=== PATIENT | female | born 1950 | race Hispanic/Latino ===

== ENCOUNTER 2018-10-21 10:32 | Inpatient (IN) | payer MEDICARE ==
[2018-10-18 09:04] LABS: BASOPHILS % 0.4 % (0.0-1.0); EOSINOPHILS # (AUTO) 0.2 (0.0-0.4); EOSINOPHILS % 3.3 % (0.0-6.0); HEMATOCRIT 31.2 % (34.2-44.1); HEMOGLOBIN 10.5 g/dL (12.0-16.0); LYMPHOCYTES # (AUTO) 1.4 (1.0-3.2); LYMPHOCYTES % 18.9 % (18.0-39.1); MEAN CORPUSCULAR HEMOGLOBIN 29.5 pg (28-32); MEAN CORPUSCULAR HGB CONC 33.7 g/dL (31-35); MEAN CORPUSCULAR VOLUME 87.6 fL (81-99); MONOCYTES # (AUTO) 0.6 (0.2-0.8); MONOCYTES % 7.8 % (4.4-11.3); NEUTROPHILS # (AUTO) 5.1 (2.1-6.9); NEUTROPHILS % 69.3 % (38.7-80.0); PLATELET COUNT 241 x10e3/uL (140-360); RED BLOOD COUNT 3.56 x10e6/uL (3.6-5.1)
--- NOTE | 2018-10-18 09:24 | Diagnostic Imaging Report ---
EXAM: CHEST 2 VIEWS, PA and lateral DATE: 10/18/2018 Time stamp on exam: 8:49 AM INDICATION: Preoperative COMPARISON: None FINDINGS: LINES/TUBES: None LUNGS: No consolidations or edema. PLEURA: No effusions or pneumothorax. HEART AND MEDIASTINUM: Normal size and contour. Tortuous thoracic aorta. BONES AND SOFT TISSUES: No acute findings. IMPRESSION: No acute thoracic abnormality. Signed by: Dr. Mariano Olivas DO on 10/18/2018 9:20 AM
[2018-10-18 09:40] LABS: ALBUMIN 3.4 g/dL (3.5-5.0); ALBUMIN/GLOBULIN RATIO 0.7 (0.8-2.0); ANION GAP 13.3 mmol/L (8-16); CALCIUM 10.2 mg/dL (8.4-10.2); CREATININE, SERUM 1.21 mg/dL (0.57-1.11); POTASSIUM 4.3 mmol/L (3.5-5.1)
[2018-10-21] VITALS (22 sets, daily range): BP systolic 131–160; BP diastolic 59–80
[~2018-10-21] VITALS: Ht 154.9 cm; Wt 76.0 kg
[2018-10-21] MEDS: SOD CHL 0.45%/POT CHL 20MEQ 1,000 ML IV SCH ×2 (02:35→18:32)
[~2018-10-21 10:32] MED LIST: BASAGLAR SQ; FERROUS SULFAT325 M1 PO; GLIPIZIDE5 MG PO; LOSARTAN POTASS25 MG PO; METFORMIN HCL500 MG PO; SIMVASTATIN20 MG PO
--- OUTSIDE RECORDS SUMMARY | 2018-10-21 10:33 | XMS REPORT ---
Author Author [facility] Address Unknown Phone Unavailable Care Team Providers [place] Weighmaster Name Role Phone RENO RETANA Unavailable Unavailable Problems This patient has no known problems. Allergies, Adverse Reactions, Alerts This patient has no known allergies or adverse reactions. Medications This patient has no known medications. Results Test Description Test Time Test Comments Text Results Atomic Results Result Comments CHEST 2 VIEWS 2018-10-18 09:20:00 [place] [id number] Patient Name: BLAKE MEDELLIN MR #: [id number] : 1950 Age/Sex: 68/F Req #: [id number] [facility] Physician: Ordered by: RENO RETANA MD Report #: [id number] Location: OR Room/Bed: Procedure: [id number] DX/CHEST 2 VIEWS Exam Date: 10/18/18 Exam Time: 0855 REPORT STATUS: Signed EXAM: CHEST 2 VIEWS, PA and lateral DATE: 10/18/2018 Time stamp on exam: 8:49 AM INDICATION: Preoperative COMPARISON: None FINDINGS: LINES/TUBES: None LUNGS: No consolidations or edema. PLEURA: No effusions or pneumothorax. HEART AND MEDIASTINUM: Normal size and contour. Tortuous thoracic aorta. BONES AND SOFT TISSUES: No acute findings. IMPRESSION: No acute thoracic abnormality. Signed by: Dr. Jostin Thomas DO on 10/18/2018 9:20 AM Dictated By: JOSTIN THOMAS DO 9 Transcribed By: EUNICE on 10/18/18919 COPY TO: RENO RETANA MD
[2018-10-21] MEDS ORDERED: CEFAZOLIN SOD 1 GM/NS 50ML 50 ML IV ONE (10:48)
[2018-10-21] MEDS ORDERED: DEXTROSE 5% 250ML 250 ML IV ONE (10:55)
[2018-10-21] MEDS ORDERED: IRBESARTAN150 MG PO (11:45)
[2018-10-21] MEDS ORDERED: MANNITOL 25% 12.5GM/50ML 50 ML ONE (12:44)
[2018-10-21] MEDS ORDERED: ACETAMINOPHEN 1000 MG/100 ML IV PRN (15:45)
[2018-10-21] MEDS: SODIUM CHLORIDE 0.9% 250ML IRRIG IR SCH ×3 (15:45→23:00)
[2018-10-21] MEDS ORDERED: NALOXONE HCL INJ 0.4 MG/ML AMP IV PRN (15:45)
[2018-10-21] MEDS ORDERED: MORPHINE SULFATE 1 MG/ML 30ML PCA IV PRN (15:45)
[2018-10-21] MEDS ORDERED: DIPHENHYDRAMINE HCL INJ 50 MG/ML VIAL IM PRN (15:45)
[2018-10-21] MEDS ORDERED: HYDROMORPHONE 2MG/ML 2 MG/ML ML ONE (16:18)
[2018-10-21] MEDS ORDERED: FENTANYL CITRATE/PF 100MCG/2 ML INJ ONE ×2 (16:34→19:46)
--- NOTE | 2018-10-21 16:51 | Diagnostic Imaging Report ---
Examination: Single AP view of the chest. COMPARISON: Chest radiograph 10/18/2018 INDICATION: Evaluate for pneumothorax after nephrectomy DISCUSSION: Single AP portable chest radiograph. Exam limited by rotation. Lines/tubes: Interval placement of a nasogastric tube which courses below the diaphragm with tip out of the [id number]. Lungs: Central pulmonary vascular congestion and perihilar/bibasilar atelectasis. Pleura: There is no pleural effusion or pneumothorax. Heart and mediastinum: Cardiomediastinal silhouette is unremarkable. Pulmonary vasculature is normal. Bones and soft tissues: No acute bony abnormalities. Degenerative changes in the thoracic spine and shoulder girdles. IMPRESSION: No pneumothorax. Pulmonary vascular congestion and atelectasis. Signed by: Pancho Nj MD on 10/21/2018 4:47 PM
[2018-10-21] MEDS ORDERED: MEPERIDINE HCL INJ 25 MG/ML VIAL ONE (16:55)
[2018-10-21] MEDS ORDERED: MORPHINE SULFATE INJ 4 MG/ML INJ 1ML ONE (17:08)
[2018-10-21] MEDS ORDERED: SODIUM CHLORIDE 0.9% 1000ML 1,000 ML ONE (17:24)
[2018-10-21] MEDS ORDERED: DEXAMETHASONE SOD PHOS INJ 4 MG/ML VIAL ONE (18:11)
[2018-10-21] MEDS ORDERED: PROPOFOL IV EMULSION 10 MG/ML 20 ML VIAL ONE (18:11)
[2018-10-21] MEDS ORDERED: GLYCOPYRROLATE INJ 1MG/ 5 ML SYR ONE (18:11)
[2018-10-21] MEDS ORDERED: ONDANSETRON HCL INJ 2MG/ML 2ML 2 MG/ML VIAL ONE (18:11)
[2018-10-21] MEDS ORDERED: LIDOCAINE HCL 2% LOCAL INJ 5 ML SDV VIAL INJ ONE (18:11)
[2018-10-21] MEDS ORDERED: NEOSTIGMINE 5 MG/5ML SYR ONE (18:11)
[2018-10-21] MEDS ORDERED: ROCURONIUM BROMIDE 10 MG/ML 5ML VIAL ONE (18:11)
[2018-10-21] MEDS ORDERED: LIDOCAINE HCL 2% JELLY 5 ML TUBE ONE (18:11)
[2018-10-21] MEDS ORDERED: ACETAMINOPHEN 1000 MG/100 ML IV ONE (18:11)
[2018-10-21] MEDS ORDERED: SEVOFLURANE INHAL SOLN 250 ML PEN BTL ONE (18:11)
[2018-10-21 18:23] LABS: BASOPHILS % 0.1 % (0.0-1.0); EOSINOPHILS % 0.1 % (0.0-6.0); HEMATOCRIT 28.4 % (34.2-44.1); HEMOGLOBIN 9.4 g/dL (12.0-16.0); LYMPHOCYTES # (AUTO) 0.6 (1.0-3.2); LYMPHOCYTES % 5.9 % (18.0-39.1); MEAN CORPUSCULAR HEMOGLOBIN 29.2 pg (28-32); MEAN CORPUSCULAR HGB CONC 33.1 g/dL (31-35); MEAN CORPUSCULAR VOLUME 88.2 fL (81-99); MONOCYTES # (AUTO) 0.3 (0.2-0.8); MONOCYTES % 2.9 % (4.4-11.3); NEUTROPHILS # (AUTO) 8.5 (2.1-6.9); NEUTROPHILS % 90.7 % (38.7-80.0); PLATELET COUNT 223 x10e3/uL (140-360); RED BLOOD COUNT 3.22 x10e6/uL (3.6-5.1); RED CELL DISTRIBUTION WIDTH 14.5 % (11.7-14.4)
[2018-10-21 18:40] LABS: ANION GAP 12.5 mmol/L (8-16); BLOOD UREA NITROGEN 14 mg/dL (7-26); BUN/CREATININE RATIO 16 (6-25); CALCIUM 8.5 mg/dL (8.4-10.2); CARBON DIOXIDE 22 mmol/L (22-29); CHLORIDE 110 mmol/L (98-107); CREATININE, SERUM 0.86 mg/dL (0.57-1.11); EST GLOMERULAR FILTRATION RATE > 60 ML/MIN (60-); GLUCOSE 84 mg/dL (74-118); POTASSIUM 3.5 mmol/L (3.5-5.1); SODIUM 141 mmol/L (136-145)
[2018-10-21] MEDS ORDERED: MIDAZOLAM HCL 2 MG/2 ML VIAL ONE (19:46)
[2018-10-21] MEDS ORDERED: MORPHINE SULFATE INJ 10 MG/ML ONE (19:46)
[2018-10-21] MEDS: CEFAZOLIN SOD 1 GM/NS 50ML 50 ML IV SCH (21:33)
[2018-10-22] VITALS (45 sets, daily range): BP systolic 93–163; BP diastolic 43–109
[2018-10-22] MEDS: SODIUM CHLORIDE 0.9% 250ML IRRIG IR SCH ×2 (03:50→08:29)
[2018-10-22] MEDS ORDERED: DEXTROSE 50% SYRINGE 50 ML IV ONE (03:55)
[2018-10-22] MEDS ORDERED: DEXTROSE 50% SYRINGE 50 ML IV PRN ×2 (04:00→09:45)
[2018-10-22 05:00] LABS: BASOPHILS % 0.1 % (0.0-1.0); EOSINOPHILS % 0.1 % (0.0-6.0); HEMATOCRIT 27.7 % (34.2-44.1); LYMPHOCYTES # (AUTO) 1.2 (1.0-3.2); LYMPHOCYTES % 16.3 % (18.0-39.1); MEAN CORPUSCULAR HEMOGLOBIN 29.1 pg (28-32); MEAN CORPUSCULAR HGB CONC 32.5 g/dL (31-35); MEAN CORPUSCULAR VOLUME 89.6 fL (81-99); MONOCYTES # (AUTO) 0.8 (0.2-0.8); MONOCYTES % 10.7 % (4.4-11.3); NEUTROPHILS # (AUTO) 5.3 (2.1-6.9); NEUTROPHILS % 72.7 % (38.7-80.0); PLATELET COUNT 189 x10e3/uL (140-360); RED BLOOD COUNT 3.09 x10e6/uL (3.6-5.1); RED CELL DISTRIBUTION WIDTH 14.4 % (11.7-14.4)
[2018-10-22] MEDS: CEFAZOLIN SOD 1 GM/NS 50ML 50 ML IV SCH (05:16)
[2018-10-22 05:20] LABS: ANION GAP 12.2 mmol/L (8-16); BLOOD UREA NITROGEN 15 mg/dL (7-26); BUN/CREATININE RATIO 17 (6-25); CALCIUM 8.2 mg/dL (8.4-10.2); CARBON DIOXIDE 22 mmol/L (22-29); CHLORIDE 106 mmol/L (98-107); EST GLOMERULAR FILTRATION RATE > 60 ML/MIN (60-); GLUCOSE 118 mg/dL (74-118); POTASSIUM 4.2 mmol/L (3.5-5.1); SODIUM 136 mmol/L (136-145)
[2018-10-22] MEDS: SOD CHL 0.45%/POT CHL 20MEQ 1,000 ML IV SCH (08:29)
[2018-10-22] MEDS: ONDANSETRON HCL INJ 2MG/ML 2ML 2 MG/ML VIAL IV PRN (09:48)
[2018-10-22] MEDS ORDERED: MAGNESIUM SULFATE 2GM/50ML 50 ML IV ONE (10:00)
--- NOTE | 2018-10-22 10:00 | NUR ---
physical therapy ambulated patient on unit with continuous portable monitoring. patient with some dizziness and nausea.
[2018-10-22] MEDS: INSULIN LISPRO 100 UNIT/1 ML 3ML VIAL SQ SCH ×3 (11:30→21:00)
[2018-10-22] MEDS ORDERED: CEFAZOLIN SOD 1 GM/NS 50ML 50 ML IV SCH (14:00)
[2018-10-22] MEDS: MORPHINE SULFATE INJ 4 MG/ML INJ 1ML IV PRN ×3 (16:25→22:04)
[2018-10-22] MEDS ORDERED: CEPACOL SORE THROAT LOZENGES PO PRN (16:30)
[2018-10-22] MEDS: DEXTROSE 5%/0.9% SOD CHL 1,000 ML IV SCH (18:26)
[2018-10-22] MEDS ORDERED: DEXTROSE 5%/0.9% SOD CHL 1,000 ML IV ONE (18:29)
--- NOTE | 2018-10-22 19:00 | NUR ---
Bedside report received from Xuan DICKEY. Pt family at the bedside, care plan reviewed.
[2018-10-23] VITALS (18 sets, daily range): BP systolic 115–156; BP diastolic 45–71
[2018-10-23] MEDS: MORPHINE SULFATE INJ 4 MG/ML INJ 1ML IV PRN ×6 (05:00→22:56)
[2018-10-23 05:18] LABS: BASOPHILS % 0.1 % (0.0-1.0); EOSINOPHILS % 0.2 % (0.0-6.0); HEMATOCRIT 25.1 % (34.2-44.1); HEMOGLOBIN 8.2 g/dL (12.0-16.0); LYMPHOCYTES # (AUTO) 0.9 (1.0-3.2); LYMPHOCYTES % 10.5 % (18.0-39.1); MEAN CORPUSCULAR HEMOGLOBIN 28.9 pg (28-32); MEAN CORPUSCULAR HGB CONC 32.7 g/dL (31-35); MEAN CORPUSCULAR VOLUME 88.4 fL (81-99); MONOCYTES # (AUTO) 0.6 (0.2-0.8); MONOCYTES % 7.4 % (4.4-11.3); NEUTROPHILS # (AUTO) 6.7 (2.1-6.9); NEUTROPHILS % 81.4 % (38.7-80.0); PLATELET COUNT 178 x10e3/uL (140-360); RED BLOOD COUNT 2.84 x10e6/uL (3.6-5.1); RED CELL DISTRIBUTION WIDTH 14.4 % (11.7-14.4)
[2018-10-23 05:41] LABS: ANION GAP 10.9 mmol/L (8-16); CALCIUM 8.4 mg/dL (8.4-10.2); CREATININE, SERUM 0.97 mg/dL (0.57-1.11); POTASSIUM 3.9 mmol/L (3.5-5.1)
[2018-10-23 06:04] LABS: MAGNESIUM 1.7 MG/DL (1.3-2.1); PHOSPHORUS 2.1 MG/DL (2.3-4.7)
[2018-10-23 06:21] LABS: THYROID STIMULATING HORMONE 0.451 uIU/mL (0.350-4.940)
[2018-10-23] MEDS: DEXTROSE 5%/0.9% SOD CHL 1,000 ML IV SCH (07:52)
[2018-10-23] MEDS: INSULIN LISPRO 100 UNIT/1 ML 3ML VIAL SQ SCH ×4 (07:57→20:29)
[2018-10-23] MEDS: ONDANSETRON HCL INJ 2MG/ML 2ML 2 MG/ML VIAL IV PRN (09:23)
[2018-10-23] MEDS: SODIUM CHLORIDE 0.9% 1000ML 1,000 ML IV SCH ×2 (09:30→21:12)
[2018-10-23] MEDS ORDERED: ACETAMINOPHEN/CODEINE 300MG - 30MG TAB PO PRN (11:45)
--- NOTE | 2018-10-23 14:45 | NUR ---
CASE MANAGEMENT INITIAL ASSESSMENT Hydrogeology Professor to bedside to discuss plan of care with patient/family. CM/SW role and care transitions discussed. Anticipated discharge plan discussed along with duration of care. CM/SW discussed patients right to make decisions in care. CM/SW work hours given. Patient lives: LIVES W HER DAUGHTER IN [address] Admit/Transfer: DIRECT ADMIT FOR SURGERY Hospital/ER visits since last admit: NONE POA/Emergency contact: RAEGAN @ [phone] Current/Previous Home Health: NONE PCP/Follow-up Care: DR. DHILLON Current/Previous DME: NONE Other Services: NONE Employment Status: HOUSEWIFE Areas of Concerns: NONE AT THIS TIME Referral Needs: POSSIBLE SNF Education Needs: NONE IMM/BUCKLEY given and signed (if applicable): AT ADM Goal for discharge: PT OK W SNF IF NEEDED. HOME IF PT GAIT STEADY. CM/SW left business card at the bedside with contact information. Name and number was also written on the patients whiteboard. Patient verbalized understanding of discussion. CM will follow-up with ongoing discharge and transition of care needs.
--- NOTE | 2018-10-23 16:30 | Diagnostic Imaging Report ---
Examination: Single AP view of the chest. COMPARISON: 10/21/2018 INDICATION: Follow-up lungs status post surgery. Patient underwent partial nephrectomy 10/21/2018 DISCUSSION: The lungs are well-inflated. Linear opacity in the left lung base compatible with subsegmental atelectasis. No consolidation or pneumothorax. Stable cardiomediastinal contour without pulmonary edema. Small amount of free air under the right and left hemidiaphragms on this upright radiograph. IMPRESSION: Subsegmental atelectasis in the left lung base. Small amount of pneumoperitoneum, not evident on the initial postoperative radiograph 10/21/2018, possibly due to portable technique and supine positioning (current radiograph is upright). Findings were discussed by telephone with NOBLE Muñoz of the ICU at 4:20 PM on 10/23/2018. Signed by: Dr. Sunil Wall M.D. on 10/23/2018 4:27 PM
--- NOTE | 2018-10-23 19:00 | NUR ---
Bedside report given to Toin DICKEY. Pt granddaughter at the bedside. Care plan reviewed. No signs of distress noted at this time.
--- NOTE | 2018-10-23 22:35 | NUR ---
Received patient from ICU at this time. Patient resting in bed. Pain reported when moved in the bed, but patient reports not feeling much pain when she lays still. Lung sounds clear. Bowel sounds active. Skin intact. Dressing over incision on L side clean, dry, and intact. STACY drain intact, draining sanginous fluid. Valdivia in place, draining knott red urine. SCDs in place. Alternating pressure pump in place. Bed locked in lowest position, semi fowlers. Call light in reach. Family member at bedside.
--- NOTE | 2018-10-23 22:45 | NUR ---
gave reports to Tiffanie DICKEY, and transferred patient to 103. patient is awake alert oriented, families with her.
[2018-10-24] VITALS (10 sets, daily range): BP systolic 131–194; BP diastolic 61–79
[2018-10-24] MEDS: FAMOTIDINE 20 MG TAB PO SCH ×3 (00:08→21:47)
[2018-10-24 05:40] LABS: BASOPHILS % 0.1 % (0.0-1.0); EOSINOPHILS # (AUTO) 0.1 (0.0-0.4); HEMOGLOBIN 7.4 g/dL (12.0-16.0); LYMPHOCYTES # (AUTO) 1.2 (1.0-3.2); MEAN CORPUSCULAR HEMOGLOBIN 29.1 pg (28-32); MEAN CORPUSCULAR HGB CONC 32.6 g/dL (31-35); MEAN CORPUSCULAR VOLUME 89.4 fL (81-99); MONOCYTES # (AUTO) 0.5 (0.2-0.8); MONOCYTES % 6.5 % (4.4-11.3); NEUTROPHILS # (AUTO) 6.1 (2.1-6.9); NEUTROPHILS % 77.1 % (38.7-80.0); PLATELET COUNT 176 x10e3/uL (140-360); RED BLOOD COUNT 2.54 x10e6/uL (3.6-5.1); RED CELL DISTRIBUTION WIDTH 14.3 % (11.7-14.4)
[2018-10-24 05:51] LABS: HEMATOCRIT 22.7 % (34.2-44.1)
[2018-10-24 06:01] LABS: BLOOD UREA NITROGEN 15 mg/dL (7-26); BUN/CREATININE RATIO 17 (6-25); CALCIUM 8.4 mg/dL (8.4-10.2); CARBON DIOXIDE 20 mmol/L (22-29); CHLORIDE 107 mmol/L (98-107); CREATININE, SERUM 0.87 mg/dL (0.57-1.11); EST GLOMERULAR FILTRATION RATE > 60 ML/MIN (60-); GLUCOSE 121 mg/dL (74-118); SODIUM 134 mmol/L (136-145)
[2018-10-24] MEDS ORDERED: SODIUM CHLORIDE 0.9% 250ML 250 ML IV ONE (08:30)
[2018-10-24] MEDS ORDERED: DOCUSATE SODIUM 100 MG CAP PO SCH (09:00)
[2018-10-24] MEDS: DOCUSATE SODIUM 100 MG CAP PO SCH ×2 (09:19→16:55)
[2018-10-24] MEDS: ACETAMINOPHEN/CODEINE 300MG - 30MG TAB PO PRN ×4 (09:43→22:55)
[2018-10-24] MEDS: INSULIN LISPRO 100 UNIT/1 ML 3ML VIAL SQ SCH ×4 (09:49→21:48)
[2018-10-24] MEDS: SODIUM CHLORIDE 0.9% 1000ML 1,000 ML IV SCH (11:38)
--- NOTE | 2018-10-24 13:56 | NUR ---
REPORT GIVEN TO NOBLE MARLOW, FOR PT CONTINUED CARE.
--- NOTE | 2018-10-24 14:39 | Progress Note ---
DATE: 10/24/2018 Medicine Progress Note I am covering for Dr. Harvey. SUBJECTIVE: The patient was admitted for a partial left-sided nephrectomy, which was performed by Urology. Postoperatively, she developed some anemia requiring blood transfusion. The patient is currently doing well with no complaints. I went over the case with nursing staff as well. No other issues at this time. No overnight events. OBJECTIVE: VITAL SIGNS: Temperature 98.2, pulse 73, respiratory rate is 16, blood pressure on room air. GENERAL: Not in acute distress. Alert and oriented x3. Cooperative on examination. HEENT: Head is normocephalic and atraumatic. Eyes; pupils are equal, round, and reactive to light bilaterally. Extraocular movements are intact bilaterally. Throat, no evidence of erythema or exudates in the posterior pharynx. Has poor dentition. NECK: Supple. Good range of motion. PULMONARY: Clear to auscultation bilaterally. No wheezing, no rales, no rhonchi, no crackles appreciated. CARDIOVASCULAR: Positive S1, S2. No murmurs, rubs, or gallops appreciated. ABDOMEN: Soft, nondistended, and nontender to palpation. Bowel sounds present. MUSCULOSKELETAL: Strength is 5/5 throughout. No evidence of any muscle deficits on examination. No weakness appreciated. NEUROLOGICAL: Cranial nerves II through XII grossly intact. No evidence of any neurological deficits on exam. SKIN: Intact. Warm to touch. Good cap refill. PSYCHIATRIC: Normal affect and mood. EXTREMITIES: No edema. Good range of motion throughout. LABS: Findings show white count 7.8, hemoglobin 7.4, hematocrit 26.7, and platelets of 176. Chemistry; sodium 134, potassium , anion gap of 11, BUN 16, creatinine 0.87, glucose is 121, and calcium is 8.4. MICROBIOLOGY: None. IMPRESSION: 1. Postoperative day #3 status post partial left-sided nephrectomy. 2. Postoperative anemia. PLAN: At this time, the patient is scheduled to have two units packed RBCs already ordered by Urology. Secondary, advance her diet today. Stop IV fluids. Continue with pain control. Get a.m. labs. Follow recommendations by Urology. Otherwise, the patient is stable on examination with no other issues. Discussed plan of care with nursing staff, the patient, and the patient's family member at bedside. MD JUSTO Tate/CHARLOTTE /[id number]
[2018-10-24] MEDS ORDERED: SODIUM CHLORIDE 0.9% 250ML 250 ML ONE (16:01)
--- NOTE | 2018-10-24 16:20 | NUR ---
blood transfusion started at 75cc/hr
--- NOTE | 2018-10-24 16:35 | NUR ---
no signs of any blood transfusion reaction rate increase to 100 ml/hr.
--- NOTE | 2018-10-24 19:15 | NUR ---
Received patient in report. Blood transfusion running at 125 ml/hr. R FA 18g asymptomatic, intact, and patent. Patient got pain medicine at 1850, patient reports pain is decreasing. Valdivia draining light madeleine urine. No clots or sediment noted. Family at bedside. Bed locked in lowest position, patient in semi-fowlers position. Call light in reach.
[2018-10-24] MEDS: FUROSEMIDE INJ 10 MG/ML 2 ML VIAL IV PRN (19:46)
--- NOTE | 2018-10-24 21:27 | NUR ---
Left message for MD Harvey concerning patients elevated BP and need for BP meds. Waiting for call back. Addendum: 10/25/18 at 0132 by Alley Pritchard RN At time of previous note, second blood transfusion held until discussed BP with MD Harvey.
[2018-10-24] MEDS ORDERED: HYDRALAZINE HCL 20 MG/ML VIAL IV STA (22:33)
--- NOTE | 2018-10-24 22:34 | NUR ---
UNABLE TO CONTACT MD GEORGE. SPOKE WITH MD RENO RETANA CONCERNING ELEVATED BP. NEW ORDERS RECEIVED.
[2018-10-24] MEDS: IRBESARTAN 150 MG TAB PO SCH (22:55)
--- NOTE | 2018-10-24 23:23 | NUR ---
SPOKE WITH MD GEORGE CONCERNING PT ELEVATED BP. NEW ORDERS RECEIVED. NOTIFIED BY MD GEORGE IS OUT OF OFFICE AND MD ARROYO WILL BE TAKING HIS PATIENTS WHILE AWAY.
[2018-10-24] MEDS: NIFEDIPINE CR 30 MG TAB PO SCH (23:30)
[2018-10-25] VITALS (15 sets, daily range): BP systolic 129–168; BP diastolic 61–81
[2018-10-25] MEDS ORDERED: SODIUM CHLORIDE 0.9% 250ML 250 ML ONE (00:23)
[2018-10-25] MEDS: SODIUM CHLORIDE 0.9% 1000ML 1,000 ML IV SCH (00:26)
--- NOTE | 2018-10-25 00:45 | NUR ---
Increased blood transfusion to 100ml/hr.
[2018-10-25] MEDS: FUROSEMIDE INJ 10 MG/ML 2 ML VIAL IV PRN (03:56)
[2018-10-25 05:54] LABS: BASOPHILS % 0.1 % (0.0-1.0); EOSINOPHILS # (AUTO) 0.2 (0.0-0.4); EOSINOPHILS % 3.4 % (0.0-6.0); HEMATOCRIT 30.4 % (34.2-44.1); HEMOGLOBIN 10.6 g/dL (12.0-16.0); LYMPHOCYTES # (AUTO) 1.3 (1.0-3.2); LYMPHOCYTES % 18.7 % (18.0-39.1); MEAN CORPUSCULAR HEMOGLOBIN 29.8 pg (28-32); MEAN CORPUSCULAR HGB CONC 34.9 g/dL (31-35); MEAN CORPUSCULAR VOLUME 85.4 fL (81-99); MONOCYTES # (AUTO) 0.5 (0.2-0.8); MONOCYTES % 6.7 % (4.4-11.3); NEUTROPHILS # (AUTO) 4.7 (2.1-6.9); NEUTROPHILS % 70.5 % (38.7-80.0); PLATELET COUNT 207 x10e3/uL (140-360); RED BLOOD COUNT 3.56 x10e6/uL (3.6-5.1); RED CELL DISTRIBUTION WIDTH 13.9 % (11.7-14.4)
[2018-10-25 05:57] LABS: ANION GAP 11.5 mmol/L (8-16); BLOOD UREA NITROGEN 15 mg/dL (7-26); CALCIUM 9.1 mg/dL (8.4-10.2); CARBON DIOXIDE 25 mmol/L (22-29); CHLORIDE 104 mmol/L (98-107); GLUCOSE 193 mg/dL (74-118); POTASSIUM 3.5 mmol/L (3.5-5.1); SODIUM 137 mmol/L (136-145)
[2018-10-25 06:15] LABS: BUN/CREATININE RATIO 17 (6-25); CREATININE, SERUM 0.87 mg/dL (0.57-1.11); EST GLOMERULAR FILTRATION RATE > 60 ML/MIN (60-)
--- NOTE | 2018-10-25 07:19 | NUR ---
Rcvd patient in report this am. Patient is asleep in bed at this time. No s/s of distress noted
[2018-10-25] MEDS: NIFEDIPINE CR 30 MG TAB PO SCH (08:18)
[2018-10-25] MEDS: DOCUSATE SODIUM 100 MG CAP PO SCH ×2 (08:18→16:59)
[2018-10-25] MEDS: IRBESARTAN 150 MG TAB PO SCH (08:18)
[2018-10-25] MEDS: FAMOTIDINE 20 MG TAB PO SCH (08:18)
[2018-10-25] MEDS: INSULIN LISPRO 100 UNIT/1 ML 3ML VIAL SQ SCH ×3 (08:22→17:00)
[2018-10-25] MEDS: ACETAMINOPHEN/CODEINE 300MG - 30MG TAB PO PRN ×3 (08:22→16:59)
--- NOTE | 2018-10-25 10:44 | NUR ---
Patient is AAOx3. Estonian speaking only. Patient is post op left partial nephrectomy. Incision clean and dry. Alycia clean and intact. STACY drain in place. Lung ramirez clear to auscultation. Bowel sounds present x4. Patient passing gas at this time. Patient ambulates with a walker. PRN pain meds given. No edema noted. Patient tolerating her food with no nausea or vomiting noted
--- NOTE | 2018-10-25 12:05 | NUR ---
Patient returned from nuclear medicine at this time. Patient assisted by 2 staff members to the bedside commode and then the chair. Addendum: 10/25/18 at 1207 by May Moody RN wrong patient
--- NOTE | 2018-10-25 13:42 | NUR ---
EDUCATED ABOUT IMM, SIGNED, FILED IN CHART, WITH COPY LEFT WITH FAMILY AT BEDSIDE.
--- NOTE | 2018-10-25 13:44 | NUR ---
Changed dressing to left tyrone drain site. Incision remains clean and dry
--- NOTE | 2018-10-25 14:00 | NUR ---
Removed marquez at this time. Patient tolerated well. Patient due to void in 6 hours
[2018-10-25] MEDS ORDERED: ONDANSETRON HCL 4 MG ORAL DISINTEGRATING TAB PO PRN (15:00)
--- NOTE | 2018-10-25 15:12 | NUR ---
Patient voided at this time.
[2018-10-25] MEDS ORDERED: TYLENOL WITH C1 EACH PO (15:21)
--- NOTE | 2018-10-25 16:02 | NUR ---
GAVE PT WALKER OBTAINED ALL SIGNATURES AND RETURNED GREEN SHEET WITH FACESHEET AND ORDER ATTACHED TO PACU.
--- NOTE | 2018-10-25 17:20 | NUR ---
Removed IV to left forearm. Patient tolerated well. Removed one stitch from left side of abdomen and removed STACY drain. Patient tolerated well. Tip intact. Gauze dressing applied.
--- NOTE | 2018-10-25 17:47 | NUR ---
Patient discharged from facility to home. Patient assisted out via staff. Reviewed all discharge instructions, follow up appts, and RX's given
--- NOTE | 2018-10-25 17:58 | Discharge Summary ---
FINAL DISCHARGE DIAGNOSES: 1. Status post partial left-sided nephrectomy performed by Urology on 10/21/2018. 2. Postoperative anemia, now improved. CONSULTANTS: Urology. PHYSICAL EXAMINATION: VITAL SIGNS: Temperature is 97.6, pulse 74, respiratory rate 16, blood pressure 143/81, and pulse ox 97% on room air. LAB FINDINGS: Show white count 6.6, hemoglobin 10.6, hematocrit 30.4, and platelets of 207. Sodium 137, potassium 3.5, chloride 104, bicarb 25, anion gap of 11, BUN 16, creatinine 0.87, glucose is 193, and calcium 9.1. IMAGING STUDIES: Chest x-ray on 10/18/2018, shows no acute thoracic abnormality. Chest x-ray shows no pneumothorax. HOSPITAL COURSE: This is a 68-year-old female, who came in for an elective nephrectomy. The patient underwent status post partial left-sided nephrectomy performed on 10/21/2018 by Urology. The patient did well postoperatively with no complaints. The patient was found to be anemic postoperatively, requiring blood transfusion with much improved hemoglobin. Hemoglobin on discharge was 10.6. The patient is to follow up as an outpatient with Urology for pathology results. Family verbalized understanding. The patient was then cleared for discharge by Urology for discharge home. The family understood Urology's goals of care and discharge planning and agreed to discharge. On the day of discharge, vital signs stable, labs were stable. The patient was seen, evaluated, examined thoroughly on the day of discharge. No other complaints. The patient verbalized understanding and agrees to plan of care. To follow up as an outpatient with the primary care physician in 1 week and Urology in 1 week time. MEDICATIONS: See med reconciliation form. DISPOSITION: To home. CONDITION: Stable. DIET: Heart healthy. In the event of any worsening symptoms, the patient was advised to come back to the ED for further evaluation. Discharge summary took greater than 35 minutes. MD JUSTO Tate/CHARLOTTE /[id number]
--- NOTE | 2018-11-07 00:16 | Operative Report ---
DATE OF PROCEDURE: 10/21/2018 SURGEON: Reinaldo Becerra MD PREOPERATIVE DIAGNOSIS: Left renal mass. POSTOPERATIVE DIAGNOSIS: Left renal cell carcinoma. OPERATION PERFORMED: Left partial nephrectomy. DIRECTOR OF PUBLIC WORKS: Julián Becerra MD. COMPLICATIONS: None. CLINICAL SUMMARY: Ms. Flores is a 68-year-old woman who was found to have a renal mass. She is brought for the above procedure. She is aware of the risks of bleeding, infection, injury to adjacent structures, incomplete cancer resection, need for additional procedures, injury to adjacent structures, and she elected to proceed. OPERATIVE PROCEDURE IN DETAIL: Informed consent was verified. Janel Flores was properly identified, taken to the operating room, placed on the operating table in supine position. Anesthesia was uneventfully begun. The patient was then carefully gently repositioned following placement of Valdivia catheter. In the flank position, she was secured to the skin. All pressure points were carefully well padded. Her abdomen, chest, and back were prepared and draped in usual sterile fashion. The left flank incision was made, carried through all layers of the abdominal and chest wall. We isolated the retroperitoneum. We isolated the kidney. We obtained vascular control. Mannitol was administered by the field operations technician, we then scored the renal capsule approximately 1 cm away from the renal mass. We then cut away the renal mass, sent it for histopathological evaluation and quickly over sewed the vessels within the cut edge with 3-0 chromic suture. Once we obtained good hemostasis, vascular control was relinquished and there was no arterial bleeding. A 2-0 chromic suture was then placed through the capsule in interrupted fashion. We then utilized FloSeal and Surgicel to control the defect and this was tied down with the 2-0 chromic suture. Excellent hemostasis was obtained. Copious irrigation was performed. Verification of hemostasis was performed. The pathologist informed us that we had negative margins. The patient's incision was then approximated in multiple layers utilizing heavy Vicryl suture in an interrupted [id number] fashion. The skin was approximated with skin milton. The drain was placed through a separate stab incision and was secured with a nylon suture. The patient was then uneventfully reversed from anesthesia and taken to the recovery in stable condition. There were no complications to the procedure. She tolerated the procedure well. Sponge, needle and instrument counts were of course correct x2 at the end of the case. For estimated blood loss, please refer to the anesthetic record. We will plan on routine postoperative care and of course ongoing neurological followup. MD IMAN Zuniga/CHARLOTTE /[id number]
== END 2018-10-25 17:47 | disposition home or self-care (01) | DRG 657 ==
LOC: OR 10:32 → PACU V 15:42 → ICU 17:56 → MED/SURG 10-23 22:37
PROVIDERS: ADMIT Internal Medicine; ATTEND Internal Medicine
PROC: 0TB10ZZ Excision of Left Kidney, Open Approach (ICD-10-PCS; principal; 2018-10-21 13:00)
PROC: 30233N1 Transfusion of Nonautologous Red Blood Cells into Peripheral Vein, Percutaneous Approach (ICD-10-PCS; 2018-10-24)
DX: C64.2 Malignant neoplasm of left kidney, except renal pelvis (principal); D62 Acute posthemorrhagic anemia; N28.89 Other specified disorders of kidney and ureter; I10 Essential (primary) hypertension; E11.9 Type 2 diabetes mellitus without complications; Z79.4 Long term (current) use of insulin
CPT/HCPCS: 36415; 71045; 71046; 80048; 80053; 82948; 83036; 83735; 84100; 84443; 85025; 86850; 86900; 86920; 88307; 88329; 93005; 97139; J0360; J0690; J1100; J1200; J1940; J2001; J2150; J2175; J2250; J2270; J2405; J3475; J7030; J7042; J7050; J7070; J7799; P9016

== ENCOUNTER → 2019-07-18 | Day surgery (SDC) | payer MEDICARE ==
[2019-07-16 13:51] LABS: BASOPHILS % 0.4 % (0.0-1.0); EOSINOPHILS # (AUTO) 0.2 (0.0-0.4); EOSINOPHILS % 2.8 % (0.0-6.0); HEMATOCRIT 32.1 % (34.2-44.1); HEMOGLOBIN 10.9 g/dL (12.0-16.0); LYMPHOCYTES # (AUTO) 1.8 (1.0-3.2); LYMPHOCYTES % 24.8 % (18.0-39.1); MEAN CORPUSCULAR HEMOGLOBIN 31.2 pg (28-32); MONOCYTES # (AUTO) 0.5 (0.2-0.8); MONOCYTES % 6.6 % (4.4-11.3); NEUTROPHILS # (AUTO) 4.8 (2.1-6.9); NEUTROPHILS % 65.3 % (38.7-80.0); PLATELET COUNT 196 x10e3/uL (140-360); RED BLOOD COUNT 3.49 x10e6/uL (3.6-5.1); RED CELL DISTRIBUTION WIDTH 12.7 % (11.7-14.4)
--- NOTE | 2019-07-16 14:05 | Diagnostic Imaging Report ---
Chest, 2 views, 07/16/2019. History: Preop, urologic procedure. Comparison: 10/23/2018. Findings: The cardiomediastinal silhouette and pulmonary vasculature are within normal limits. The lungs are clear without evidence of consolidation or pleural effusion. Degenerative changes are noted within the thoracic spine. There are no acute osseous or soft tissue abnormalities. Impression: No acute cardiopulmonary abnormality. Signed by: Alfredo Magaña on 07/16/2019 2:02 PM
[2019-07-16 14:09] LABS: ANION GAP 13.4 mmol/L (8-16); CALCIUM 9.5 mg/dL (8.4-10.2); CREATININE, SERUM 1.32 mg/dL (0.57-1.11); POTASSIUM 4.4 mmol/L (3.5-5.1)
[~2019-07-18] MED LIST changes: +B&O 60MG R/S 60 MG SUPP PR ONE; +DEXAMETHASONE SOD PHOS INJ 4 MG/ML VIAL ONE; +FENTANYL CITRATE/PF 100MCG/2 ML INJ ONE; +GENTAMICIN 80MG/NS 100 ML 200 ML IV ONE; +IOPAMIDOL 300MG/ML 50ML INFUS..BTL IV ONE; +IRBESARTAN150 MG PO; +KETOROLAC TROMETHAMINE 30 MG/ML VIAL ONE; +LIDOCAINE HCL 2% LOCAL INJ 5 ML SDV VIAL INJ ONE; +LISINOPRIL10 MG PO; +MIDAZOLAM HCL 2 MG/2 ML VIAL ONE; +ONDANSETRON HCL INJ 2MG/ML 2ML 2 MG/ML VIAL ONE; +PROPOFOL IV EMULSION 10 MG/ML 20 ML VIAL ONE; +SEVOFLURANE INHAL SOLN 250 ML PEN BTL ONE; +TYLENOL WITH C1 EACH PO
[2019-07-18 14:10] VITALS: BP 130/63
--- NOTE | 2019-08-26 23:24 | Operative Report ---
DATE OF PROCEDURE: 07/18/2019 SURGEON: Reinaldo Becerra MD PREOPERATIVE DIAGNOSIS: Urinary tract infections. POSTOPERATIVE DIAGNOSES: 1. Urethral stenosis. 2. Urinary tract infections. 3. Grade 1 cystocele. 4. Grade 1 rectocele. 5. Atrophic (senile) vaginitis. 6. Urethral hypermobility. OPERATIONS PERFORMED: 1. Cystourethroscopy with bilateral ureteral catheterization and retrograde ureteropyelography (separate procedure performed for the urinary tract infections). 2. Interpretation of retrograde ureteropyelography. 3. Supervision of fluoroscopy, no radiologist present. 4. Cystourethroscopy with calibration and dilation of urethral stenosis (separate procedure performed for the stenosis). 5. Pelvic examination under anesthesia. ANESTHESIA: General. COMPLICATIONS: None. CLINICAL SUMMARY: Janel Flores is a 69-year-old woman. The patient is brought for the above procedure. She is aware of the risks of bleeding, infection, injury to adjacent structures, need for additional procedures and elected to proceed. OPERATIVE PROCEDURE IN DETAIL: Informed consent was verified. Janel Flores was properly identified taken to the operating room, placed on the cystoscopy table in supine position. Anesthesia was uneventfully begun. The patient was then carefully gently repositioned in the dorsal lithotomy position with all pressure points well padded. Her genitalia were prepared and draped in usual sterile fashion. The 22.5-Singaporean cystoscope sheath with obturator in place was attempted to be placed in the patient's urethra and this was difficult. The patient's urethra was then calibrated at 18-Singaporean in size and progressively dilated to 30-Singaporean in size. We were then easily able to place the cystoscope sheath into the patient's urethra. The bladder was drained. Panendoscopy of the bladder revealed grade 1 trabeculations, but no tumors, no stones, no diverticula. Signs of chronic cystitis were noted. Urine culture was obtained upon catheterizing the bladder. An 8-Singaporean catheter was used to cannulate each ureter and retrograde ureteral pyelograms were performed. Interpretation of retrograde ureteropyelography contrast was instilled in retrograde fashion bilaterally. There were no tumors, no stones, no diverticula. Unobstructed drainage was observed bilaterally fluoroscopically. There was J hooking noted bilaterally and clips within the abdominal cavity. There was some ureteral tortuosity noted. This was most prominent in the proximal ureter on the left hand side. This appeared to result in minimal amount of fullness on the left side compared to the right side, but nevertheless some unobstructed drainage was observed bilaterally fluoroscopically. Multiple clips were noted within the abdominal cavity. The patient's bladder was drained, cystoscope was withdrawn. Pelvic examination under anesthesia revealed grade 1 cystocele, grade 1 rectocele, there was atrophic vaginitis with urethral hypermobility. No abnormal palpable pelvic masses could be appreciated. There were no obvious mucosal lesions. The patient was then uneventfully reversed from anesthesia and taken to recovery room in stable condition. Explicit postoperative instructions were given and we will follow the patient up in the office and of course on an indefinite basis. Reinaldo Becerra MD [place]/MODL /[id number] cc: Reinaldo Becerra MD
== END | disposition home or self-care (01) ==
LOC: OR 09:43
PROVIDERS: ATTEND Urology
DX: N30.20 Other chronic cystitis without hematuria (principal); N35.92 Unspecified urethral stricture, female; N32.89 Other specified disorders of bladder; N13.8 Other obstructive and reflux uropathy; N36.41 Hypermobility of urethra; N81.10 Cystocele, unspecified; N81.6 Rectocele; N95.2 Postmenopausal atrophic vaginitis; D64.9 Anemia, unspecified; I10 Essential (primary) hypertension; E11.9 Type 2 diabetes mellitus without complications; M19.90 Unspecified osteoarthritis, unspecified site; Z01.810 Encounter for preprocedural cardiovascular examination; Z01.812 Encounter for preprocedural laboratory examination; Z01.818 Encounter for other preprocedural examination; Z79.84 Long term (current) use of oral hypoglycemic drugs; Z87.891 Personal history of nicotine dependence
CPT/HCPCS: 36415; 52281; 71046; 74420; 80048; 85025; 87086; 87186; 93005; C1758; J1100; J1580; J1885; J2001; J2250; J2405; J2704; J3010; Q9967